=== PATIENT | male | born 1965 | race Caucasian/White ===

== ENCOUNTER 2024-05-18 10:46 | Day surgery (SDC) | payer BC ==
[~2024-05-18] VITALS: Ht 175.3 cm; Wt 79.0 kg
[~2024-05-18 10:46] MED LIST: ECOT81TA5 PO; LISI10TA22 PO; NS 250 ML IV ONE; SIMV20TA22 PO; VITA100093 PO
[2024-05-18] MEDS ORDERED: LIDOCAINE 2% 100MG/5ML SDV (FOR ANES.) As Ordered ONE (12:03)
[2024-05-18] MEDS ORDERED: propofoL 200 MG/20 ML VIAL As Ordered ONE (12:03)
[2024-05-18 13:00] VITALS: TEMP 97.4
[2024-05-18 13:17] VITALS: BP 110/69; O2SAT 96
== END 2024-05-18 13:30 | disposition home or self-care (01) ==
LOC: M OPP 10:46
PROVIDERS: ATTEND Surgery
DX: Z12.11 Encounter for screening for malignant neoplasm of colon (principal); K64.0 First degree hemorrhoids; Z86.0100 Personal history of colon polyps, unspecified; Z90.49 Acquired absence of other specified parts of digestive tract; I10 Essential (primary) hypertension; I49.3 Ventricular premature depolarization; E78.00 Pure hypercholesterolemia, unspecified; E04.1 Nontoxic single thyroid nodule; Z79.899 Other long term (current) drug therapy; Z79.82 Long term (current) use of aspirin; Z87.891 Personal history of nicotine dependence